=== PATIENT | female | born 1985 | race Caucasian/White ===

== ENCOUNTER 2017-11-30 14:43 | Emergency (ER) | payer OTHER ==
--- NOTE | 2017-11-30 15:15 | ED Physician Documentation ---
PD HPI SKIN - Stated complaint Stated Complaint: L ARMPIT BUMP/RED - Chief complaint Chief Complaint: Wound - History obtained from History obtained from: Patient - History of Present Illness Timing - onset: How many days ago (few) Timing - duration: Days (few) Timing - details: Gradual onset, Still present Location: LUE (axilla) Quality / character: Painful, Swelling. No: Draining Associated symptoms: No: Fever, Myalgias Review of Systems Constitutional: denies: Fever, Chills, Myalgias Neurologic: denies: Focal weakness, Numbness PD PAST MEDICAL HISTORY - Past Medical History Cardiovascular: None Endocrine/Autoimmune: None - Past Surgical History Past Surgical History: No - Present Medications Home Medications: Ambulatory Orders Medication Instructions Recorded Confirmed Albuterol Sulfate [Proventil Hfa 1 - 2 puffs IH Q4H PRN #1 03/24/15 Inhaler] [email or web address] Azithromycin [Zithromax] 250 mg PO DAILY #4 tablet 03/24/15 Sulfamethox/Trimeth 800/160 1 each PO BID #14 tablet 11/30/17 [Bactrim Ds 800/160] - Allergies Allergies/Adverse Reactions: Allergies Allergy/AdvReac Type Severity Reaction Status Date / Time No Known Drug Allergies Allergy Verified 11/30/17 14:59 - Social History Does the pt smoke?: No Smoking Status: Never smoker Does the pt drink ETOH?: No Does the pt have substance abuse?: No - Immunizations Immunizations are current?: Yes - POLST Patient has POLST: No PD ED PE NORMAL - Vitals Vital signs reviewed: Yes - General General: Alert and oriented X 3, Well developed/nourished - Neck Neck: Supple, no meningeal sign, No adenopathy - Cardiac Cardiac: RRR, No murmur - Respiratory Respiratory: Clear bilaterally - Derm Derm: Normal color, Warm and dry - Extremities Extremities: Other (left axilla with 2 cm rounded tender red lump c/w abscess. ) - Neuro Neuro: Alert and oriented X 3, No motor deficit, No sensory deficit Results - Vitals Vitals: Vital Signs - 24 hr 11/30/17 14:56 Temperature 36.3 C L Heart Rate 74 Respiratory 16 Rate Blood Pressure 118/75 O2 Saturation 99 Oxygen O2 Source Room air Procedures - Abscess I&D (location) left axilla Preparation: Lidocaine 1%, With epi Incision: Incised with scalpel, Purulent drainage, Irrigated. No: Packed Other: Dressing applied, Antibiotic prescribed. No: Pt tolerated well (it was very painful for the local anesth and she was tearful for that. Was okay for the I&D after.) PD MEDICAL DECISION MAKING - ED course Complexity details: re-evaluated patient, considered differential, d/w patient - Sepsis Event Vital Signs: Vital Signs - 24 hr 11/30/17 14:56 Temperature 36.3 C L Heart Rate 74 Respiratory 16 Rate Blood Pressure 118/75 O2 Saturation 99 Oxygen O2 Source Room air Departure - Departure Disposition: Home, Self Care Clinical Impression: Axillary abscess Condition: Stable Record reviewed to determine appropriate education?: Yes Instructions: ED Abscess IandD Prescriptions: Sulfamethox/Trimeth 800/160 [Bactrim Ds 800/160] 1 each PO BID #14 tablet Comments: Warm moist compresses to the area to promote drainage over the next day or 2. Try to squeeze it gently to ensure good output from it. Tylenol ibuprofen or naproxen if needed for pains. Bactrim antibiotic twice daily for a week. Recheck if not improved over the next several days to week. Discharge Date/Time: 11/30/17 16:08
[2017-11-30] MEDS ORDERED: SULFAMETH/TRIMETH DS 800/160 MG TABLET PO STA (15:46)
[2017-11-30] MEDS ORDERED: ACETAMINOPHEN 325 MG TABLET PO STA (15:46)
[2017-11-30] MEDS ORDERED: IBUPROFEN 600 MG TABLET PO STA (15:46)
[2017-11-30 15:59] VITALS: BP 106/71
== END 2017-11-30 16:08 | disposition home or self-care (01) ==
LOC: ED 14:43
DX: L02.412 Cutaneous abscess of left axilla (principal)
CPT/HCPCS: 10060; 99283; A9270